=== PATIENT | male | born 1965 | race Caucasian/White ===

== ENCOUNTER 2020-12-24 14:57 | Emergency (ER) | payer OTHER ==
[2020-12-24 15:08] VITALS: BP 170/98
[2020-12-24] MEDS ORDERED: DOXEPIN 10 MG CAPSULE PO STA (15:30)
--- NOTE | 2020-12-24 15:32 | ED Physician Documentation ---
PD HPI SKIN - Stated complaint Stated Complaint: RASH ON ARMS - Chief complaint Chief Complaint: Allergic Rx - History obtained from History obtained from: Patient (55-year-old gentleman was camping on private property last week in [place]. While there he dug up some what he thought were very small oak trees that were on the ground and brought him home to plant them. They are dying. He developed a very itchy rash on forearm.) Review of Systems Constitutional: reports: Reviewed and negative Eyes: reports: Reviewed and negative Ears: reports: Reviewed and negative PD PAST MEDICAL HISTORY - Past Medical History Past Medical History: Yes Cardiovascular: None Respiratory: Sleep apnea Neuro: None Endocrine/Autoimmune: None GI: None : None HEENT: None Psych: None Musculoskeletal: None Derm: Psoriasis - Past Surgical History Past Surgical History: Yes HEENT: Other - Present Medications Home Medications: Ambulatory Orders Medication Instructions Recorded Confirmed Doxepin [SINEquan] 10 mg PO TID PRN #20 cap 12/24/20 Triamcinolone 0.1% Oint 1 applic TOP BID #80 gm 12/24/20 - Allergies Allergies/Adverse Reactions: Allergies Allergy/AdvReac Type Severity Reaction Status Date / Time No Known Drug Allergies Allergy Verified 12/24/20 15:04 - Social History Does the pt smoke?: No Smoking Status: Former smoker Does the pt drink ETOH?: Yes Does the pt have substance abuse?: No - Immunizations Immunizations are current?: Yes PD ED PE NORMAL - Vitals Vital signs reviewed: Yes - General General: Alert and oriented X 3, No acute distress - Derm Derm: Other (Excoriated contact dermatitis on the anterior forearms) - Neuro Neuro: Alert and oriented X 3, Normal speech Results - Vitals Vitals: Vital Signs - 24 hr 12/24/20 15:04 Temperature 36.7 C Heart Rate 81 Respiratory 16 Rate Blood Pressure 170/98 H O2 Saturation 95 Oxygen O2 Source Room air PD MEDICAL DECISION MAKING - ED course ED course: Per his description I am sure this is poison oak. He was treated with steroids and an antihistamine. Departure - Departure Disposition: 01 Home, Self Care Clinical Impression: Contact dermatitis due to poison oak Condition: Good Record reviewed to determine appropriate education?: Yes Instructions: ED Dermatitis Contact Prescriptions: Doxepin [SINEquan] 10 mg PO TID PRN #20 cap PRN Reason: Itching Triamcinolone 0.1% Oint 1 applic TOP BID #80 gm Comments: Apply the cream to the affected area which will help with the itching and inflam mation. For the oral antiitch medicine, it is sedating, do not drink or drive with it. Rash should be gone over the next couple of weeks. Return if you worsen.
== END 2020-12-24 15:57 | disposition home or self-care (01) ==
LOC: ED 14:57
DX: L23.7 Allergic contact dermatitis due to plants, except food (principal); Z87.891 Personal history of nicotine dependence
CPT/HCPCS: 99282; 99283; A9270